=== PATIENT | female | born 1980 | race Caucasian/White ===

== ENCOUNTER 2022-05-08 20:05 | Emergency (ER) | payer BC ==
[2022-05-08] MEDS ORDERED: Tetracaine 0.5% PF 4 ML BOT ONE (20:58)
[2022-05-08] MEDS ORDERED: Fluorescein Opthalmic Strip ONE (20:58)
== END 2022-05-08 21:15 | disposition home or self-care (01) ==
LOC: CSHERS 20:05
DX: H10.11 Acute atopic conjunctivitis, right eye (principal)
CPT/HCPCS: 99283